=== PATIENT | female | born 1965 | race Caucasian/White ===

== ENCOUNTER 2018-01-20 19:08 | Inpatient (IN) | payer SELFPAY ==
[~2018-01-20] VITALS: Ht 160 cm; Wt 81.6 kg
[~2018-01-20 19:08] MED LIST: LISINOPRIL HCTZ1 TAB PO
--- NOTE | 2018-01-20 19:47 | ED DYSPNEA/ASTHMA COMPLAINT ---
History of Present Illness General Chief Complaint: General Adult Stated Complaint: COUGHING UP BLOOD Source: patient Exam Limitations: no limitations Vital Signs & Intake/Output Vital Signs & Intake/Output Vital Signs Date Time Temp Pulse Resp B/P B/P Pulse O2 O2 Flow FiO2 Mean Ox Delivery Rate 01/20 2237 99.0 93 18 176/86 92 Nasal 2.0L Cannula 01/20 2101 79 186/102 01/20 2046 96 Nasal 2.0L Cannula 01/20 2001 Room Air 01/20 1947 99.4 79 18 186/102 91 Room Air Allergies Coded Allergies: No Known Allergies (01/20/18) Reconcile Medications LISINOPRIL/HYDROCHLOROTHIAZIDE (Lisinopril-Hctz 20-25 MG Tab) 1 TAB TAB 1 TAB PO DAILY HTN Triage Nurses Notes Reviewed? yes Onset: Abrupt Duration: constant Timing: recent history Severity: severe HPI: Patient is a 52-year-old female with past medical history of hypertension and hyperlipidemia who is noncompliant with her medications for presents emergent with a 24-hour history of shortness of breath dyspnea on exertion cough denies weakness and fatigue and due to multiple coughing episodes hemoptysis has occurred. Denies any chest pain arm pain jaw pain nausea vomiting flex swelling or history of DVT or PE (Toño Johnston) Past History Medical History Any Pertinent Medical History? see below for history Cardiovascular: hypertension, hyperlipidemia History of CDIFF: No Surgical History Surgical History: non-contributory Psychosocial History What is your primary language Cypriot Family History Hx Contributory? No (Toño Johnston) Review of Systems Review of Systems Constitutional: Reports: see HPI, fever. EENTM: Reports: no symptoms. Respiratory: Reports: see HPI, cough, short of breath. Cardiovascular: Reports: no symptoms. GI: Reports: no symptoms. Genitourinary: Reports: no symptoms. Musculoskeletal: Reports: no symptoms. Skin: Reports: no symptoms. Neurological/Psychological: Reports: no symptoms. Hematologic/Endocrine: Reports: no symptoms. Immunologic/Allergic: Reports: no symptoms. All Other Systems: Reviewed and Negative (Toño Johnston) Physical Exam Physical Exam General Appearance: alert, lethargic Head: atraumatic Eyes: Bilateral: normal appearance, PERRL, EOMI. Ears, Nose, Throat: normal pharynx, normal ENT inspection Respiratory: crackles, wheezing Cardiovascular: tachycardia Gastrointestinal: normal bowel sounds, soft, non-tender Extremities: normal inspection, no edema Skin: intact, normal color, warm/dry Core Measures ACS in differential dx? No CVA/TIA Diagnosis No Sepsis Present: No Sepsis Focused Exam Completed? No (Jaycee WARREN,Toño) Progress Differential Diagnosis: asthma, AMI, bronchitis, costochondritis, CHF, COPD, musculoskeletal pain, pericarditis, pulmonary embolism, pneumonia, pneumothorax, rib fracture, unstable angina Plan of Care: Orders Procedure Date/time Status Heart Healthy Diet 01/21 B Active CBC WITHOUT DIFFERENTIAL 01/21 06 Active BASIC ELECTROLYTES PLUS BUN&CR 01/21 06 Active TROPONIN LEVEL 01/21 0200 Active EKG 01/21 0200 Active Weight 01/20 2336 Active Vital Signs 01/20 2336 Active Teach/Educate 01/20 2336 Active Pain Treatment and Response 01/20 2336 Active Nutritional Intake, Monitor 01/20 2336 Active Isolation 01/20 2336 Active Intake & Output 01/20 2336 Active Patient Care Conference 01/20 2336 Active Activity/Ambulation 01/20 2336 Active PROTHROMBIN TIME 01/20 2315 Complete TRC EVALUATION (GEN) 01/20 2232 Active Pathway - chart 01/20 2232 Active ED Holding Orders 01/20 2219 Active Admit to inpatient 01/20 2219 Active Vital Signs 01/20 2219 Active Code Status 01/20 2219 Active ED- NURSING MISC 01/20 2216 Active STREP PNEUMO URINARY ANTIGEN 01/20 221 Complete LEGIONELLA URINARY ANTIGEN 01/20 221 Complete LOWER RESPIRATORY CULTURE 01/20 221 Active Patient Data 01/20 2206 Active BLOOD CULTURE 01/20 2022 Active TROPONIN LEVEL 01/21 2020 Complete LACTIC ACID 01/21 2020 Complete COMPREHENSIVE METABOLIC PANEL 01/21 2020 Complete CBC WITHOUT DIFFERENTIAL 01/21 2020 Complete EKG 01/21 2020 Active Intake & Output 01/20 2001 Active VTE Mechanical Prophylaxis 01/20 UNK Active Current Medications Sig/Maynor Start time Last Medication Dose Stop Time Status Admin Enoxaparin Sodium 40 MG DAILY 01/21 0900 AC (Lovenox) Acetaminophen 650 MG Q8P PRN 01/20 2300 AC (Tylenol) Laboratory Tests 01/20/18 2320: Lactic Acid Cancelled 01/20/18 2020: Anion Gap 10, Estimated GFR > 60, BUN/Creatinine Ratio 16.7, Glucose 121 H, Lactic Acid 1.2, Calcium 9.2, Total Bilirubin 0.4, AST 27, ALT 42, Alkaline Phosphatase 131 H, Troponin I < 0.01, Total Protein 7.7, Albumin 4.1, Globulin 3.6, Albumin/Globulin Ratio 1.1, PT 10.6, INR 0.97, CBC w Diff NO MAN DIFF REQ, RBC 4.59, MCV 90.9, MCH 30.4, MCHC 33.5, RDW 13.5, MPV 7.5, Gran % 73.2, Lymphocytes % 15.4 L, Monocytes % 6.6, Eosinophils % 4.5, Basophils % 0.3, Absolute Granulocytes 9.3 H, Absolute Lymphocytes 1.9, Absolute Monocytes 0.8 H, Absolute Eosinophils 0.6, Absolute Basophils 0 Microbiology 01/20 2239 URINE ROUT: Legionella Antigen - COMP 01/20 2239 URINE ROUT: Streptococcus pneumoniae Antigen (M - COMP 01/21 2216 LOWER RESP: Respiratory Culture - ORD 01/21 2216 LOWER RESP: Gram Stain - ORD 01/20 2100 BLOOD: Blood Culture - RECD 01/20 2050 BLOOD: Blood Culture - RECD Patient upon initial presentation was noted to be 91% room air patient was given supplemental oxygen Patient does have audible crackles and wheezing Patient was given nebulizer and IV steroids and antibiotics for concerns of pneumonia CT scan shows concerns of pneumonia and consolidation discussed admission with patient was aware and agrees Diagnostic Imaging: Viewed by Me: CT Scan. Radiology Impression: acute abnormality Initial ED EK BPM,NSR NONSPECIFIC ST WAVE INVERSION Comments: PATIENT: LESLIE HERNÁNDEZ PRESENT AGE: 52 PATIENT ACCOUNT NO: [id number] : 63 LOCATION: [facility] ORDERING PHYSICIAN: Toño WARREN SERVICE DATE: 01/20/18 EXAM TYPE: CAT - CTA CHEST-PULMONARY EMBOLISM EXAMINATION: CT ANGIOGRAM OF THE CHEST WITH CONTRAST (CT PULMONARY ANGIOGRAM FOR PE) CLINICAL INFORMATION: Shortness of breath and hemoptysis. COMPARISON: Chest CT from 05/26/2010 TECHNIQUE: Prior to contrast administration, noncontrast localization images were obtained. Subsequently, multidetector volumetric imaging was performed from the thoracic inlet to below the diaphragms following the administration of 95 mL Optiray 320 intravenous contrast. No contrast reaction reported. Sagittal, coronal, and MIP oblique sagittal reformatted images were obtained on the CT workstation, uploaded to PACS, and reviewed. DLP: Total exam dose-length product 512 mGy-cm FINDINGS: QUALITY OF STUDY/CONTRAST BOLUS: Borderline in satisfactory PULMONARY ARTERIES: Pulmonary arteries are normal in size. No embolic filling defects are identified within the main, lobar or segmental vessels. THORACIC AORTA: Mild atherosclerotic calcification of the thoracic aorta without aneurysm or dissection. LUNGS AND PLEURA: Lungs are hypoinflated and right diaphragm chronically elevated. The elevated right diaphragm produces mild compressive atelectasis in the right lung base. Mild patchy groundglass opacity is present in the left lung apex. Also, patchy ground glass opacity is present in the lower third of the left upper lobe. Secretions occlude the left lower lobe bronchi and the left lower lobe is collapsed. No evidence of a peribronchial mass. CARDIOVASCULAR: The heart size is normal. No inward bowing of the interventricular septum. No pericardial effusion. MEDIASTINUM: The esophagus has normal wall thickness. The visualized portion of the thyroid gland is unremarkable. No mediastinal mass. LYMPHATICS: No pathologic sized axillary, hilar or mediastinal lymph nodes. UPPER ABDOMEN: No acute findings. No reflux of contrast into the IVC. Multiple calyceal stones of the partially visualized right kidney, largest measuring 0.4 cm. Small, 0.3 cm calyceal stone is present within the upper pole of the left kidney. Gallbladder appears to be surgically absent. Common bile duct is 0.7 cm diameter. OSSEOUS STRUCTURES: Levoscoliosis of the degenerated lower thoracic and lumbar spine. No aggressive osseous lesions. IMPRESSION: 1. No evidence of pulmonary embolism. 2. Patchy groundglass opacity in the left upper lobe, consistent with pneumonia. 3. Secretions occlude the bronchi of the left lower lobe, and the left lower lobe is completely collapsed. 4. Nonobstructing renal stones. DICTATED BY: Mg Presley MD DATE/TIME DICTATED:01/20/18 (Toño Johnston) Departure Departure Disposition: STILL A PATIENT Condition: Stable Referrals: Nalini Oneal MD Departure Forms: Customer Survey General Discharge Information Admission Note Spoke With: Joyce Perez MD Documentation of Exam: Documentation of any treatments & extenuating circumstances including Concerns Regarding Discharge (functional status, medication knowledge or non-compliance, living conditions, etc.) that warrant an admission rather than observation: [ Patient requires IV steroids IV antibiotics repeat nebulizer treatments Pulmicort consultation sputum and blood cultures pending and oxygen supplementation for concerns of community acquired pneumonia] (Toño Johnston) Departure Clinical Impression Primary Impression: Pneumonia Comments PA/GIFT SHOP CLERK Co-Sign Statement Statement: ED Attending supervision documentation- [X] I saw and evaluated the patient. I have also reviewed all the pertinent lab results and diagnostic results. I agree with the findings and the plan of care as documented in the PA's/GIFT SHOP CLERK's documentation. [] I have reviewed the ED Record and agree with the PA's/GIFT SHOP CLERK's documentation. [] Additions or exceptions (if any) to the PAs/GIFT SHOP CLERK's note and plan are summarized below: [] I've seen and personally examined the patient and I agree with the PAs evaluation. On my exam she is comfortable. Lungs reveal poor air entry bilaterally. (Marcell BEGUM,Lebron Espinoza) Critical Care Note Critical Care Note Critical Care Time: non-applicable (Toño Johnston)
[2018-01-20 20:34] LABS: ABSOLUTE BASOPHIL COUNT 0 /CUMM (0.0-0.2); ABSOLUTE EOSINOPHIL COUNT 0.6 /CUMM (0.0-0.7); ABSOLUTE GRANULOCYTE CT 9.3 /CUMM (1.4-6.5); ABSOLUTE LYMPH COUNT 1.9 /CUMM (1.2-3.4); ABSOLUTE MONOCYTE COUNT 0.8 /CUMM (0.10-0.60); BASOPHIL % 0.3 % (0.0-2.0); EOSINOPHIL % 4.5 % (0-5); HEMATOCRIT 41.7 % (37-47); MEAN CORPUSCULAR HGB 30.4 PG (27.0-31.0); MEAN CORPUSCULAR HGB CONC 33.5 G/DL (33.0-37.0); MEAN CORPUSCULAR VOLUME 90.9 FL (81.0-99.0); MEAN PLATELET VOLUME 7.5 FL (7.4-10.4); PLATELET COUNT 288 /CUMM (130-400); RBC DISTRIBUTION WIDTH 13.5 % (11.5-14.5); RED BLOOD CELL CT 4.59 /CUMM (4.20-5.40); WHITE BLOOD CELL COUNT 12.6 /CUMM (4.8-10.8)
[2018-01-20 20:45] LABS: GRANULOCYTE % 73.2 % (42.2-75.2)
--- NOTE | 2018-01-20 21:47 | CT SCAN REPORT ---
EXAMINATION: CT ANGIOGRAM OF THE CHEST WITH CONTRAST (CT PULMONARY ANGIOGRAM FOR PE) CLINICAL INFORMATION: Shortness of breath and hemoptysis. COMPARISON: Chest CT from 05/26/2010 TECHNIQUE: Prior to contrast administration, noncontrast localization images were obtained. Subsequently, multidetector volumetric imaging was performed from the thoracic inlet to below the diaphragms following the administration of 95 mL Optiray 320 intravenous contrast. No contrast reaction reported. Sagittal, coronal, and MIP oblique sagittal reformatted images were obtained on the CT workstation, uploaded to PACS, and reviewed. DLP: Total exam dose-length product 512 mGy-cm FINDINGS: QUALITY OF STUDY/CONTRAST BOLUS: Borderline in satisfactory PULMONARY ARTERIES: Pulmonary arteries are normal in size. No embolic filling defects are identified within the main, lobar or segmental vessels. THORACIC AORTA: Mild atherosclerotic calcification of the thoracic aorta without aneurysm or dissection. LUNGS AND PLEURA: Lungs are hypoinflated and right diaphragm chronically elevated. The elevated right diaphragm produces mild compressive atelectasis in the right lung base. Mild patchy groundglass opacity is present in the left lung apex. Also, patchy ground glass opacity is present in the lower third of the left upper lobe. Secretions occlude the left lower lobe bronchi and the left lower lobe is collapsed. No evidence of a peribronchial mass. CARDIOVASCULAR: The heart size is normal. No inward bowing of the interventricular septum. No pericardial effusion. MEDIASTINUM: The esophagus has normal wall thickness. The visualized portion of the thyroid gland is unremarkable. No mediastinal mass. LYMPHATICS: No pathologic sized axillary, hilar or mediastinal lymph nodes. UPPER ABDOMEN: No acute findings. No reflux of contrast into the IVC. Multiple calyceal stones of the partially visualized right kidney, largest measuring 0.4 cm. Small, 0.3 cm calyceal stone is present within the upper pole of the left kidney. Gallbladder appears to be surgically absent. Common bile duct is 0.7 cm diameter. OSSEOUS STRUCTURES: Levoscoliosis of the degenerated lower thoracic and lumbar spine. No aggressive osseous lesions. IMPRESSION: 1. No evidence of pulmonary embolism. 2. Patchy groundglass opacity in the left upper lobe, consistent with pneumonia. 3. Secretions occlude the bronchi of the left lower lobe, and the left lower lobe is completely collapsed. 4. Nonobstructing renal stones.
--- NOTE | 2018-01-20 22:36 | History & Physical ---
Wai Rizzo MD 01/20/18 2236: General Information and HPI MD Statement: I have seen and personally examined LESLIE HERNÁNDEZ and documented this H&P. The patient is a 52 year old F who presented with a patient stated chief complaint of [hemoptysis]. Source of Information: patient Exam Limitations: no limitations History of Present Illness: Patient is a 52-year-old female with a PMH significant for hypertension, hyperlipidemia who presents complaining of fatigue, nasal congestion and worsening dyspnea on exertion over the last few days. On the day of admission patient began having hemoptysis initially reports it as being phlegm streaked with blood and then chito red blood mixed with sputum. Patient reports mild chest pain associated with cough and continued worsening dyspnea on exertion however no dyspnea at rest. She denies any sick contacts and denies any fevers, chills, nausea, vomiting, diarrhea, urinary symptoms, neurologic symptoms. Allergies/Medications Allergies: Coded Allergies: No Known Allergies (01/20/18) Home Med list LISINOPRIL/HYDROCHLOROTHIAZIDE (Lisinopril-Hctz 20-25 MG Tab) 1 TAB TAB 1 TAB PO DAILY HTN Past History Travel History Traveled to [place] past 21 day No Medical History Neurological: NONE EENT: NONE Cardiovascular: hypertension Respiratory: NONE Gastrointestinal: NONE Hepatic: NONE Renal: NONE Musculoskeletal: NONE Psychiatric: NONE Endocrine: NONE History of CDIFF: No Surgical History Surgical History: cholecystectomy Past Family/Social History Family History Relations & Conditions if any MOTHER FH: stroke, Onset: 50-60. Psychosocial History Where do you live? Home Who Do You Live With? spouse Services at Home: None Primary Language: Faroese Smoking Status: Never Smoked ETOH Use: denies use Illicit Drug Use: denies illicit drug use Functional Ability ADLs Independent: dressing, eating, toileting, bathing. Ambulation: independent IADLs Independent: shopping, housework, finances, food prep, telephone, transportation , medication admin. Review of Systems Review of Systems Constitutional: Denies: chills, fever, malaise. EENTM: Reports: nasal congestion. Denies: blurred vision, double vision, visual changes. Cardiovascular: Denies: chest pain, palpitations, syncope. Respiratory: Reports: cough, hemoptysis, short of breath, sputum production. GI: Denies: abdominal pain, bloating, constipation, diarrhea, nausea, bloody stool, vomiting. Genitourinary: Denies: dysuria, frequency, hematuria. Musculoskeletal: Reports: no symptoms. Skin: Reports: no symptoms. Exam & Diagnostic Data Last 24 Hrs of Vital Signs/I&O Vital Signs Date Time Temp Pulse Resp B/P B/P Pulse O2 O2 Flow FiO2 Mean Ox Delivery Rate 01/20 2237 99.0 93 18 176/86 92 Nasal 2.0L Cannula 01/20 2101 79 186/102 01/20 2046 96 Nasal 2.0L Cannula 01/20 2001 Room Air 01/20 1947 99.4 79 18 186/102 91 Room Air Physical Exam General Appearance Alert, Oriented X3, Cooperative, No Acute Distress Skin Temp/Moisture Exam: Warm/Dry Sepsis Skin Exam (color): Normal for Ethnicity HEENT Atraumatic, PERRLA, EOMI, Mucous Membr. moist/pink Cardiovascular Regular Rate, Normal S1, Normal S2 Lungs scant rhonchi, diminished breath sound of the L lower lung field Abdomen Normal Bowel Sounds, Soft, No Tenderness Extremities No Clubbing, No Cyanosis, No Edema Last 24 Hrs of Labs/Nomi: Laboratory Tests 01/20/182319: Lactic Acid Cancelled 01/20/182019: Anion Gap 10, Estimated GFR > 60, BUN/Creatinine Ratio 16.7, Glucose 121 H, Lactic Acid 1.2, Calcium 9.2, Total Bilirubin 0.4, AST 27, ALT 42, Alkaline Phosphatase 131 H, Troponin I < 0.01, Total Protein 7.7, Albumin 4.1, Globulin 3.6, Albumin/Globulin Ratio 1.1, PT Pending, INR Pending, CBC w Diff NO MAN DIFF REQ, RBC 4.59, MCV 90.9, MCH 30.4, MCHC 33.5, RDW 13.5, MPV 7.5, Gran % 73.2, Lymphocytes % 15.4 L, Monocytes % 6.6, Eosinophils % 4.5, Basophils % 0.3, Absolute Granulocytes 9.3 H, Absolute Lymphocytes 1.9, Absolute Monocytes 0.8 H, Absolute Eosinophils 0.6, Absolute Basophils 0 Microbiology 01/20 2239 URINE ROUT: Legionella Antigen - COMP 01/20 2239 URINE ROUT: Streptococcus pneumoniae Antigen (M - COMP 01/21 2216 LOWER RESP: Respiratory Culture - ORD 06/20 2216 LOWER RESP: Gram Stain - ORD 01/20 2100 BLOOD: Blood Culture - RECD 01/20 2050 BLOOD: Blood Culture - RECD Diagnostic Data EKG Results Sinus rhythm with nonspecific T-wave changes, HR 82, QTc 449 Other Results CTA Chest QUALITY OF STUDY/CONTRAST BOLUS: Borderline in satisfactory PULMONARY ARTERIES: Pulmonary arteries are normal in size. No embolic filling defects are identified within the main, lobar or segmental vessels. THORACIC AORTA: Mild atherosclerotic calcification of the thoracic aorta without aneurysm or dissection. LUNGS AND PLEURA: Lungs are hypoinflated and right diaphragm chronically elevated. The elevated right diaphragm produces mild compressive atelectasis in the right lung base. Mild patchy groundglass opacity is present in the left lung apex. Also, patchy ground glass opacity is present in the lower third of the left upper lobe. Secretions occlude the left lower lobe bronchi and the left lower lobe is collapsed. No evidence of a peribronchial mass. CARDIOVASCULAR: The heart size is normal. No inward bowing of the interventricular septum. No pericardial effusion. MEDIASTINUM: The esophagus has normal wall thickness. The visualized portion of the thyroid gland is unremarkable. No mediastinal mass. LYMPHATICS: No pathologic sized axillary, hilar or mediastinal lymph nodes. UPPER ABDOMEN: No acute findings. No reflux of contrast into the IVC. Multiple calyceal stones of the partially visualized right kidney, largest measuring 0.4 cm. Small, 0.3 cm calyceal stone is present within the upper pole of the left kidney. Gallbladder appears to be surgically absent. Common bile duct is 0.7 cm diameter. OSSEOUS STRUCTURES: Levoscoliosis of the degenerated lower thoracic and lumbar spine. No aggressive osseous lesions. IMPRESSION: 1. No evidence of pulmonary embolism. 2. Patchy groundglass opacity in the left upper lobe, consistent with pneumonia. 3. Secretions occlude the bronchi of the left lower lobe, and the left lower lobe is completely collapsed. 4. Nonobstructing renal stones. Assessment/Plan Assessment: Patient is a 52-year-old female with a PMH significant for hypertension, hyperlipidemia who presents complaining of fatigue, nasal congestion and worsening dyspnea on exertion over the last few days. On the day of admission patient began having hemoptysis initially reports it as being phlegm streaked with blood and then chito red blood mixed with sputum. CTA ruled out PE, shows patchy groundglass opacity of the left upper lobe with secretions occluding the bronchi of the left lower lobe and left lower lobe collapse. Vital signs on presentation: T 99.4, P 79, RR 18, BP 186/102, pulse ox 91% on room air (improved to 96% on 2 L) Labs: WBC 12.6, H/H 13.9/41.7, platelets 288, sodium 139, potassium 3.8, chloride 99, CO2 30, BUN 10, creatinine 0.6, glucose 121, lactic acid 1.2, alk phos 131 Problem list #Community-acquired pneumonia with hemoptysis #Hypertension, patient admits to noncompliance with her antihypertensive medications and she does not currently have a PCP #HLD Plan -Admit to general medicine floor -IV ceftriaxone and azithromycin -Sputum culture, blood cultures -Lisinopril and hydrochlorothiazide for blood pressure control -Pulm consult in a.m., patient does not have a general engineering teacher -Chest PT Diet: Heart healthy DVT prophylaxis: Lovenox, Alps CODE STATUS: Full code As Ranked By This Provider Problem List: 1. Pneumonia 2. Hemoptysis Core Measures/Misc (04/19) Acute Coronary Syndrome ACS Diagnosis: No Congestive Heart Failure Congestive Heart Failure Diagnosis No Cerebrovascular Accident CVA/TIA Diagnosis: No VTE (View Protocol) VTE Risk Factors Age>40 No Mechanical VTE Prophylaxis d/t N/A MechProphylax Ordered No VTE Pharm Prophylaxis d/t NA PharmProphylax ordered Sepsis (View protocol) Sepsis Present: No If YES complete Sepsis Event Note If YES complete Sepsis Event Note Charity Harrington 01/21/18 0006: Core Measures/Misc (04/19) Sepsis (View protocol) If YES complete Sepsis Event Note If YES complete Sepsis Event Note Resident Review Statement Resident Statement: discussed with agronomy internship, agreed with agronomy internship Other Findings: Patient is a 52-year-old female with past medical history of hypertension, hyperlipidemia, who came with a chief complaint of difficulty breathing since 3- 4 days. Patient states that it started on Thursday, 01/17, and since then she's been having difficulty breathing on exertion and productive cough. Initially she said the sputum was clear however this morning, initially she saw specks of blood mixed with sputum and later had chito hemoptysis of bright red blood. Patient denies any fever or chills. She is a nonsmoker, never had pneumonia in her life, does not use any oxygen at home. Patient states that she has been noncompliant with her antihypertensive medication and did not even have it at home. Labs and vitals as above Assessment and plan Will admit the patient on general medicine floor. Her hemoptysis could be due to bronchitis versus a possible infectious process in her left upper and lower pneumonia shown as groundglass opacities. Will start her on IV ceftriaxone and azithromycin and monitor vitals every shift. We will repeat her labs CBC and BEP in a.m. Given her chest pain, and nonspecific T-wave changes in her inferior leads, will repeat EKG and troponins and follow-up. Patient takes a combination of lisinopril and hydrochlorothiazide at home for hypertension, will continue the same. DVT prophylaxis subcutaneous days Lovenox. Patient is full code. Joyce Perez MD 01/21/18 0024: Core Measures/Misc (04/19) Sepsis (View protocol) If YES complete Sepsis Event Note If YES complete Sepsis Event Note Attending MD Review Statement Attending Statement Attending MD Statement: examined this patient, discuss w/resident/PA/TRAFFIC ANALYST, agreed w/resident/PA/TRAFFIC ANALYST, reviewed EMR data (avail) Attending Assessment/Plan: 52F PMH HTN non-compliant with medications presents with 3 days of progressive worsening cough with yellow sputum, noted flecks of blood in her sputum today and came to ED. Has been weak with poor PO intake for the past 1-2 days. Non- smoker, no sick contacts or recent travel. 99.4 with mildly elevated BP 180/106 in ED, given home anti-hypertensives, WBC 12.6. CTA chest shows no PE but JEIMY pneumonia with LLL mucous plugging. Plan: Admit to general medicine, Ceftriaxone , Azithro, chest physiotherapy, nebulizer treatments, pulmonary consult, sputum culture, S.pneumo and Legionella antigens, continue home anti-hypertensives, DVT PPx.
[2018-01-20 23:33] LABS: PT 10.6 SEC (9.4-12.5)
--- NOTE | 2018-01-21 02:27 | Admission Certification ---
Admission Certification Certification Statement - As attending physician, I certify that at the time of - admission, based on clinical presentation, severity of - symptoms, need for further diagnostic testing and - therapeutic interventions, and risk of adverse outcomes - without in-hospital treatment, in my clinical assessment, - this patient requires an acute hospital stay for a minimum - of two nights or longer. I have also considered psychsocial - factors such as support system, advanced age, financial - issues, cognitive issues, and failed out-patient treatments, - past re-admission history, safety of patient, and lack of - compliance as applicable. Specific rationale supporting this admission is: JEIMY and LLL pneumonia with hypoxia
[2018-01-21 06:18] VITALS: BP 150/90
[2018-01-21 08:37] LABS: ABSOLUTE BASOPHIL COUNT 0 /CUMM (0.0-0.2); ABSOLUTE EOSINOPHIL COUNT 0 /CUMM (0.0-0.7); ABSOLUTE GRANULOCYTE CT 11.4 /CUMM (1.4-6.5); ABSOLUTE LYMPH COUNT 0.8 /CUMM (1.2-3.4); ABSOLUTE MONOCYTE COUNT 0.1 /CUMM (0.10-0.60); BASOPHIL % 0 % (0.0-2.0); EOSINOPHIL % 0 % (0-5); HEMATOCRIT 43.8 % (37-47); MEAN CORPUSCULAR HGB 29.8 PG (27.0-31.0); MEAN CORPUSCULAR HGB CONC 33.1 G/DL (33.0-37.0); MEAN CORPUSCULAR VOLUME 90.1 FL (81.0-99.0); MEAN PLATELET VOLUME 7.9 FL (7.4-10.4); PLATELET COUNT 264 /CUMM (130-400); RED BLOOD CELL CT 4.86 /CUMM (4.20-5.40)
--- NOTE | 2018-01-21 08:55 | PN- Housestaff ---
Kelsy GHOTRA,Augustine 01/21/18 0855: Subjective Follow-up For: pneumonia HTN Subjective: no overnight events afebrile on antibiotics on 3L supplemental oxygen patient does complain of pleuritic chest pain with her cough, exertional dyspnea is improved with supplemental oxygen Review of Systems Constitutional: Reports: see HPI. Objective Last 24 Hrs of Vital Signs/I&O Vital Signs Date Time Temp Pulse Resp B/P B/P Pulse O2 O2 Flow FiO2 Mean Ox Delivery Rate 01/21 1050 93 Nasal 3.0L Cannula 01/21 1025 Nasal 3.0L Cannula 01/21 0903 86 139/87 01/21 0800 Nasal 3.0L Cannula 01/21 0618 98.2 84 20 150/90 93 Nasal 3.0L Cannula 01/21 0000 Nasal 3.0L Cannula 01/20 2330 Nasal 2.0L Cannula 01/20 2237 99.0 93 18 176/86 92 Nasal 2.0L Cannula 01/20 2101 79 186/102 01/20 2046 96 Nasal 2.0L Cannula 01/20 2001 Room Air 01/20 1947 99.4 79 18 186/102 91 Room Air Intake & Output 01/21 1600 01/21 0800 01/21 0000 Intake Total 200 Output Total Balance 200 Intake, Oral 200 Patient 81.647 kg 81.647 kg Weight Weight Reported by Patient Measurement Method Physical Exam General Appearance: Alert, Oriented X3, Cooperative, No Acute Distress, on 3-4L supplemental oxygen via nasal cannula Cardiovascular: Regular Rate, Normal S1, Normal S2, No Murmurs Lungs: diminished at the left base Abdomen: Normal Bowel Sounds, Soft, No Tenderness, No Masses Extremities: No Clubbing, No Cyanosis, No Edema, Normal Pulses Current Medications: Current Medications Sig/Maynor Start time Last Medication Dose Route Stop Time Status Admin Acetaminophen 650 MG Q8P PRN 01/20 2300 AC PO Acetaminophen 650 MG Q8P PRN 01/20 2245 DC PO Albuterol Sulfate 3 ML BID 01/21 2100 AC INH Albuterol Sulfate 3 ML ONCE ONE 01/20 2030 DC 01/20 INH 01/20 Azithromycin 500 MG DAILY 01/21 0900 AC 01/21 Sodium Chloride 250 ML IV 09 Azithromycin 500 MG ONCE ONE 01/20 2030 DC 01/20 Sodium Chloride 250 ML IV 06/20 2129 2130 Ceftriaxone Sodium 1,000 MG DAILY 01/21 09 AC 01/21 IV 0903 Ceftriaxone Sodium 0 .STK-MED ONE 01/20 2259 DC .ROUTE Ceftriaxone Sodium 1,000 MG ONCE ONE 01/20 2200 DC 01/20 IV 01/20 Enoxaparin Sodium 40 MG DAILY 01/21 900 DC SC Enoxaparin Sodium 40 MG DAILY 01/21 0900 AC 01/21 SC 0903 Guaifenesin 600 MG Q12 01/21 900 AC 01/21 PO 0901 Guaifenesin 600 MG ONCE ONE 01/20 2030 DC 01/20 PO 01/20 Hydrochlorothiazide 12.5 MG DAILY 01/21 09 AC 01/21 PO 0903 Hydrochlorothiazide 12.5 MG ONCE ONE 01/20 2030 DC 01/20 PO 01/20 Ibuprofen 600 MG Q8P PRN 01/21 0015 AC PO Ipratropium Casa 2.5 ML ONCE ONE 01/20 2030 DC 01/20 INH 01/20 Lisinopril 10 MG DAILY 01/21 900 AC 01/21 PO 0903 Lisinopril 0 .STK-MED ONE 01/20 2049 DC PO Lisinopril 10 MG ONCE ONE 01/20 2030 DC 01/20 PO 01/20 Melatonin 5 MG ONCE ONE 01/21 0030 DC 01/21 PO 01/21 003 0101 Methylprednisolone 0 .STK-MED ONE 01/21 2048 DC .ROUTE Methylprednisolone 125 MG ONCE ONE 01/20 2030 DC 01/20 IV 01/20 Last 24 Hrs of Lab/Nomi Results Last 24 Hrs of Labs/Mics: Laboratory Tests 01/21/18 0705: Anion Gap 15, Estimated GFR > 60, BUN/Creatinine Ratio 18.3, CBC w Diff NO MAN DIFF REQ, RBC 4.86, MCV 90.1, MCH 29.8, MCHC 33.1, RDW 13.0, MPV 7.9, Gran % 93.0 H, Lymphocytes % 6.2 L, Monocytes % 0.8 L, Eosinophils % 0, Basophils % 0, Absolute Granulocytes 11.4 H, Absolute Lymphocytes 0.8 L, Absolute Monocytes 0.1, Absolute Eosinophils 0, Absolute Basophils 0 01/21/185: Troponin I < 0.01 01/20/182319: Lactic Acid Cancelled 01/20/182019: Anion Gap 10, Estimated GFR > 60, BUN/Creatinine Ratio 16.7, Glucose 121 H, Lactic Acid 1.2, Calcium 9.2, Total Bilirubin 0.4, AST 27, ALT 42, Alkaline Phosphatase 131 H, Troponin I < 0.01, Total Protein 7.7, Albumin 4.1, Globulin 3.6, Albumin/Globulin Ratio 1.1, PT 10.6, INR 0.97, CBC w Diff NO MAN DIFF REQ, RBC 4.59, MCV 90.9, MCH 30.4, MCHC 33.5, RDW 13.5, MPV 7.5, Gran % 73.2, Lymphocytes % 15.4 L, Monocytes % 6.6, Eosinophils % 4.5, Basophils % 0.3, Absolute Granulocytes 9.3 H, Absolute Lymphocytes 1.9, Absolute Monocytes 0.8 H, Absolute Eosinophils 0.6, Absolute Basophils 0 Microbiology 01/21 1200 LOWER RESP: Respiratory Culture - ORD 01/21 1200 LOWER RESP: Gram Stain - ORD 01/20 223 URINE ROUT: Legionella Antigen - COMP 01/20 223 URINE ROUT: Streptococcus pneumoniae Antigen (M - COMP 01/20 2216 LOWER RESP: Respiratory Culture - COLB 01/20 2216 LOWER RESP: Gram Stain - COLB 01/20 2100 BLOOD: Blood Culture - RES 01/20 2050 BLOOD: Blood Culture - RES Assessment/Plan Assessment: 52 year old nonsmoking female with PMH of HTN and HLD off of medications because of no insurance presented with complaints of increasing exertional dyspnea and cough for several days that progressed from blood tinged sputum to small volume hemoptysis and evaluation. The patient was hypoxic on presentation and CTA of the chest showed patchy JEIMY infiltrate and collapse of the LLL, admitted to general medicine for pneumonia. Pneumonia with hemopytsis: Titrate supplemental oxygen to maintain an SpO2 > 92% Continue ceftriaxone and azithromycin Induce sputum culture, strep pneumo/legionella urinary antigens Afebrile from admission, reports chills confounds by perimenopausal hot flashes Follow up cultures TRC evaluation Continue mucinex and nebulized albuterol LLL collapse: Aggressive chest physiotherapy Induce sputum culture Incentive spirometry Probably endobronchial obstruction from mucous secretions and pneumonia Bronchoscopy could relieve obstruction and assess for an endobronchial mass/ biopsy NPO after midnight for possible bronchoscopy Sputum cytology HTN: Continue lisinopril and HCTZ Heart healthy diet DVT ppx-lovenox Full code Problem List: 1. Hemoptysis 2. Pneumonia Pain Ratin Pain Location: pleuritic chest pain Pain Goal: Pain 4 or less Pain Plan: prn Tomorrow's Labs & Rationales: fatemeh Molina MD,Thiago 01/21/18 1109: Attending MD Review Statement Attending Statement Attending MD Statement: examined this patient, discuss w/resident/PA/BOILER WATER TESTER, agreed w/resident/PA/BOILER WATER TESTER, reviewed EMR data (avail), discussed with nursing, discussed with case mgmt, amended to note Attending Assessment/Plan: Patient seen and examined. Lying in bed not in any acute respiratory distress. She states she does not feel significantly better compared to presentation. She complains of cough. Denies chest pain. Denies shortness of breath at rest. She is afebrile. She is hemodynamically stable. She is saturating 93% on 3 L of oxygen. On examination she has diminished breath sounds in left lung base with no significant added sounds. No jugular venous distention. No peripheral edema. Heart sounds are regular. Recommendations: -Continue IV antibiotic therapy for presumed pneumonia. -Pulmonary consultation appreciated. I agree with anticipating fiberoptic bronchoscopy if she does not have improvement of her left lung collapse with mucolytic therapy with nucleus and chest physical therapy. This should be evidenced by improvement of her oxygenation status. -After resolution of her pneumonia clinically she will require repeat chest CT to rule out any underlying pulmonary lesion. -Blood pressure was elevated on admission. Patient reports noncompliance due to lack of medical insurance. She has been started on lisinopril. -She will be followed up by the financial service department to assist in obtaining insurance coverage.
[2018-01-21 09:56] LABS: WHITE BLOOD CELL COUNT 12.3 /CUMM (4.8-10.8)
--- NOTE | 2018-01-21 10:56 | Cons- Pulmonary ---
General Information and HPI Consulting Request Date of Consult: 01/21/18 Requested By: Elisa Reason for Consult: Left lower lobe collapse History of Present Illness: Patient is 52-year-old nonsmoker admitted with increasing cough and hemoptysis. Several days ago patient developed congestion without fevers or chills or chest pain and had cough productive of discolored sputum and small amounts of blood and had cough productive of discolored sputum and small amounts of blood. CT scan of the chest shows evidence of left lower lobe infiltrate and CT scan of the chest shows evidence of left lower lobe infiltrate and left lower lobe collapse with endobronchial obstruction thought to be secondary to secretions . Allergies/Medications Allergies: Coded Allergies: No Known Allergies (01/20/18) Home Med List: LISINOPRIL/HYDROCHLOROTHIAZIDE (Lisinopril-Hctz 20-25 MG Tab) 1 TAB TAB 1 TAB PO DAILY HTN Review of Systems Review of Systems Constitutional: Denies: chills, fever. Cardiovascular: Denies: chest pain, edema. Respiratory: Reports: cough, hemoptysis, short of breath, sputum production. Denies: wheezing. GI: Denies: abdominal pain, diarrhea, melena. Past History Travel History Traveled to [place] past 21 day No Medical History Blood Transfusion Hx: No Neurological: NONE EENT: NONE Cardiovascular: hypertension, hyperlipidemia Respiratory: NONE Gastrointestinal: NONE Hepatic: NONE Renal: NONE Musculoskeletal: NONE Psychiatric: NONE Endocrine: NONE Blood Disorders: NONE Cancer(s): NONE CARDIOTHORACIC SURGEON/Reproductive: NONE Surgical History Surgical History: cholecystectomy Family History Relations & Conditions If Any: MOTHER FH: stroke, Onset: 50-60. Psychosocial History Where Do You Live? Home Who Do You Live With? spouse Services at Home: None Primary Language: Italian Smoking Status: Never Smoked ETOH Use: denies use Illicit Drug Use: denies illicit drug use Functional Ability ADLs Independent: dressing, eating, toileting, bathing. Ambulation: independent IADLs Independent: shopping, housework, finances, food prep, telephone, transportation , medication admin. Exam & Diagnostic Data Last 24 Hrs of Vital Signs/I&O Vital Signs Date Time Temp Pulse Resp B/P B/P Pulse O2 O2 Flow FiO2 Mean Ox Delivery Rate 01/21 0903 86 139/87 01/21 0800 Nasal 3.0L Cannula 01/21 0618 98.2 84 20 150/90 93 Nasal 3.0L Cannula 01/21 0000 Nasal 3.0L Cannula 01/20 2330 Nasal 2.0L Cannula 01/20 2237 99.0 93 18 176/86 92 Nasal 2.0L Cannula 01/20 2101 79 186/102 01/206 96 Nasal 2.0L Cannula 01/20 2001 Room Air 01/20 1947 99.4 79 18 186/102 91 Room Air Intake & Output 01/21 1600 01/21 0800 01/21 0000 Intake Total 200 Output Total Balance 200 Intake, Oral 200 Patient 180 lb 180 lb Weight Weight Reported by Patient Measurement Method Oxygen saturation 3 L 93% HEENT exam shows no adenopathy exam for chest shows somewhat diminished breath sounds over the left posterior chest there is no localized wheezing right lung is clear cardiac exam shows a regular S1 and S2 without murmurs abdomen is soft nontender there's no edema or clubbing Last 48 Hrs of Labs/Nomi: Laboratory Tests 01/21/18 0705: Anion Gap 15, Estimated GFR > 60, BUN/Creatinine Ratio 18.3, CBC w Diff NO MAN DIFF REQ, RBC 4.86, MCV 90.1, MCH 29.8, MCHC 33.1, RDW 13.0, MPV 7.9, Gran % 93.0 H, Lymphocytes % 6.2 L, Monocytes % 0.8 L, Eosinophils % 0, Basophils % 0, Absolute Granulocytes 11.4 H, Absolute Lymphocytes 0.8 L, Absolute Monocytes 0.1, Absolute Eosinophils 0, Absolute Basophils 0 01/21/18 0225: Troponin I < 0.01 01/20/18 2320: Lactic Acid Cancelled 01/20/18 2020: Anion Gap 10, Estimated GFR > 60, BUN/Creatinine Ratio 16.7, Glucose 121 H, Lactic Acid 1.2, Calcium 9.2, Total Bilirubin 0.4, AST 27, ALT 42, Alkaline Phosphatase 131 H, Troponin I < 0.01, Total Protein 7.7, Albumin 4.1, Globulin 3.6, Albumin/Globulin Ratio 1.1, PT 10.6, INR 0.97, CBC w Diff NO MAN DIFF REQ, RBC 4.59, MCV 90.9, MCH 30.4, MCHC 33.5, RDW 13.5, MPV 7.5, Gran % 73.2, Lymphocytes % 15.4 L, Monocytes % 6.6, Eosinophils % 4.5, Basophils % 0.3, Absolute Granulocytes 9.3 H, Absolute Lymphocytes 1.9, Absolute Monocytes 0.8 H, Absolute Eosinophils 0.6, Absolute Basophils 0 Microbiology 01/20 2239 URINE ROUT: Legionella Antigen - COMP 01/20 2239 URINE ROUT: Streptococcus pneumoniae Antigen (M - COMP Assessment/Plan Impression/Plan: 52-year-old non-smoker with extensive exposure to secondhand smoke admitted with cough productive of purulent sputum admitted with cough productive of purulent sputum and self-limited hemoptysis found to have left lower lobe collapse left lower lobe infiltrate . Concern is raised over a primary left lower lobe endobronchial lesion with secondary drowned lung versus new acquired pneumonia with retained secretions Recommendations: Sputum APARTMENT LEASING SPECIALIST and sputum for cytology aggressive pulmonary toilet Mucomyst nebs. If patient fails to improve fiberoptic bronchoscopy will be necessary . Patient should be n.p.o. after midnight in case bronchoscopy is needed She should be nothing by mouth after midnight in case bronchoscopy is needed shoud hemoptysis recur . Continue antibiotics in view of leukocytosis Consult Acknowledgment - Thank you for your consult request.
[2018-01-21 15:18] VITALS: BP 156/80
[2018-01-21 22:16] VITALS: BP 138/80
[2018-01-22 06:57] VITALS: BP 136/71
--- NOTE | 2018-01-22 07:07 | PN- Housestaff ---
See Addendum Subjective Follow-up For: pneumonia HTN Subjective: patient is feeling somewhat improved today no more hemoptysis, supplemental oxygen requirement improved today no plan for bronchoscopy at this time afebrile on antibiotics Review of Systems Constitutional: Reports: see HPI. Objective Last 24 Hrs of Vital Signs/I&O Vital Signs Date Time Temp Pulse Resp B/P B/P Pulse O2 O2 Flow FiO2 Mean Ox Delivery Rate 01/22 1011 18 90 Room Air 01/22 0915 94 Nasal 2.0L Cannula 01/22 0914 18 92 Nasal 1.0L Cannula 01/22 0840 16 94 Nasal 2.0L Cannula 01/22 0800 97 Nasal 2.0L Cannula 01/22 0657 98.6 69 20 136/71 95 Nasal 3.0L Cannula 01/22 0000 Nasal 3.0L Cannula 01/21 2216 98.2 95 18 138/80 92 Nasal 3.0L Cannula 01/21 2020 95 Nasal 3.0L Cannula 01/21 1600 92 Nasal 3.0L Cannula 01/21 1518 98.4 93 20 156/80 92 Nasal 3.0L Cannula Intake & Output 01/22 1600 01/22 0800 01/22 0000 Intake Total 70 1090 Output Total Balance 70 1090 Intake, IV 10 10 Intake, Oral 60 1080 Number 0 0 Bowel Movements Physical Exam General Appearance: Alert, Oriented X3, Cooperative, No Acute Distress, on 1L NC oxygen Cardiovascular: Regular Rate, Normal S1, Normal S2, No Murmurs Lungs: improved air movement in left base Abdomen: Normal Bowel Sounds, Soft, No Tenderness, No Masses Extremities: No Clubbing, No Cyanosis, No Edema, Normal Pulses Current Medications: Current Medications Sig/Maynor Start time Last Medication Dose Route Stop Time Status Admin Acetaminophen 650 MG Q8P PRN 01/20 2300 AC PO Acetylcysteine 4 ML BID 01/21 1327 AC 01/22 INH 0833 Albuterol Sulfate 3 ML BID 01/21 2100 AC 01/22 INH 0833 Azithromycin 500 MG DAILY 01/21 09 AC 01/22 Sodium Chloride 250 ML IV 0830 Ceftriaxone Sodium 1,000 MG DAILY 01/21 0900 AC 01/22 IV 0830 Enoxaparin Sodium 40 MG DAILY 01/21 09 AC 01/22 SC 0830 Guaifenesin 600 MG Q12 01/21 09 AC 01/22 PO 0830 Hydrochlorothiazide 12.5 MG DAILY 01/21 0900 AC 01/22 PO 0831 Ibuprofen 600 MG Q8P PRN 01/21 0015 AC PO Lisinopril 10 MG DAILY 01/21 09 AC 01/22 PO 0831 Melatonin 5 MG AT BEDTIME 01/21 2100 AC 01/21 PO 2133 Last 24 Hrs of Lab/Nomi Results Last 24 Hrs of Labs/Mics: Laboratory Tests 01/22/18 0705: CBC w Diff NO MAN DIFF REQ, RBC 4.94, MCV 89.9, MCH 30.0, MCHC 33.3, RDW 13.4, MPV 7.6, Gran % 80.7 H, Lymphocytes % 12.7 L, Monocytes % 6.1, Eosinophils % 0.3, Basophils % 0.2, Absolute Granulocytes 13.7 H, Absolute Lymphocytes 2.2, Absolute Monocytes 1.0 H, Absolute Eosinophils 0.1, Absolute Basophils 0 Assessment/Plan Assessment: 52 year old nonsmoking female with PMH of HTN and HLD off of medications because of no insurance presented with complaints of increasing exertional dyspnea and cough for several days that progressed from blood tinged sputum to small volume hemoptysis and evaluation. The patient was hypoxic on presentation and CTA of the chest showed patchy JEIMY infiltrate and collapse of the LLL, admitted to general medicine for pneumonia. Pneumonia with hemopytsis: Titrate supplemental oxygen to maintain an SpO2 > 92% Continue ceftriaxone and azithromycin Follow up sputum culture Strep pneumo/legionella urinary antigens negative Afebrile on antibiotics, leukocytosis without bandemia increased today, trend CBC Follow up cultures TRC evaluation Continue mucinex and nebulized albuterol LLL collapse: Aggressive chest physiotherapy Incentive spirometry Probably endobronchial obstruction from mucous secretions and pneumonia Could be endobronchial mass, consider bronchoscopy, follow up sputum cytology Improved aeration left base and lower oxygen requirement today Obtain PA and lateral chest x-ray to reassess left lower lobe collapse HTN: Continue lisinopril and HCTZ Systolic blood pressure 130s-150s yesteray Heart healthy diet DVT ppx-lovenox Full code Problem List: 1. Pneumonia 2. Hemoptysis 3. Chest pain Pain Ratin Pain Location: n/a Pain Goal: Pain 4 or less Pain Plan: prn Tomorrow's Labs & Rationales: cbc
[2018-01-22 08:16] LABS: ABSOLUTE BASOPHIL COUNT 0 /CUMM (0.0-0.2); ABSOLUTE EOSINOPHIL COUNT 0.1 /CUMM (0.0-0.7); ABSOLUTE GRANULOCYTE CT 13.7 /CUMM (1.4-6.5); ABSOLUTE LYMPH COUNT 2.2 /CUMM (1.2-3.4); BASOPHIL % 0.2 % (0.0-2.0); EOSINOPHIL % 0.3 % (0-5); GRANULOCYTE % 80.7 % (42.2-75.2); HEMATOCRIT 44.4 % (37-47); MEAN CORPUSCULAR HGB CONC 33.3 G/DL (33.0-37.0); MEAN CORPUSCULAR VOLUME 89.9 FL (81.0-99.0); MEAN PLATELET VOLUME 7.6 FL (7.4-10.4); PLATELET COUNT 294 /CUMM (130-400); RBC DISTRIBUTION WIDTH 13.4 % (11.5-14.5); RED BLOOD CELL CT 4.94 /CUMM (4.20-5.40); WHITE BLOOD CELL COUNT 16.9 /CUMM (4.8-10.8)
--- NOTE | 2018-01-22 08:49 | PN- Pulmonary ---
Subjective HPI/Critical Care Issues: Patient has more of a productive cough though no sputum has been yet obtained for culture cytology. Review of her CAT scan with radiology suggests there may well be increased density around the left lower lobe bronchus raising more concern for possible endobronchial lesion. Objective Current Medications: Current Medications Sig/Maynor Start time Last Medication Dose Route Stop Time Status Admin Acetaminophen 650 MG Q8P PRN 01/20 2300 AC PO Acetylcysteine 4 ML BID 01/21 1327 AC 01/22 INH 0833 Albuterol Sulfate 3 ML BID 01/21 2100 AC 01/22 INH 0833 Azithromycin 500 MG DAILY 01/21 09 AC 01/22 Sodium Chloride 250 ML IV 0830 Ceftriaxone Sodium 1,000 MG DAILY 01/21 0900 AC 01/22 IV 0830 Enoxaparin Sodium 40 MG DAILY 01/21 0900 DC SC Enoxaparin Sodium 40 MG DAILY 01/21 09 AC 01/22 SC 0830 Guaifenesin 600 MG Q12 01/21 0900 AC 01/22 PO 0830 Hydrochlorothiazide 12.5 MG DAILY 01/21 09 AC 01/22 PO 0831 Ibuprofen 600 MG Q8P PRN 01/21 0015 AC PO Lisinopril 10 MG DAILY 01/21 0900 AC 01/22 PO 0831 Melatonin 5 MG AT BEDTIME 01/21 2100 AC 01/21 PO 2133 Vital Signs & I&O Last 24 Hrs of Vitals and I&O: Vital Signs Date Time Temp Pulse Resp B/P B/P Pulse O2 O2 Flow FiO2 Mean Ox Delivery Rate 01/22 0840 16 94 Nasal 2.0L Cannula 01/22 0657 98.6 69 20 136/71 95 Nasal 3.0L Cannula 01/22 0000 Nasal 3.0L Cannula 01/21 2216 98.2 95 18 138/80 92 Nasal 3.0L Cannula 01/21 2020 95 Nasal 3.0L Cannula 01/21 1600 92 Nasal 3.0L Cannula 01/21 1518 98.4 93 20 156/80 92 Nasal 3.0L Cannula 01/21 1050 93 Nasal 3.0L Cannula 01/21 1025 Nasal 3.0L Cannula 01/21 0903 86 139/87 Intake & Output 01/22 1600 01/22 0800 01/22 0000 Intake Total 70 1090 Output Total Balance 70 1090 Intake, IV 10 10 Intake, Oral 60 1080 Number 0 0 Bowel Movements Oxygen saturation 2 L 94% exam for chest continues to show diminished breath sounds over the left base though there does appear to be somewhat better aeration cardiac exam shows regular S1 and S2 without murmurs Impression/Plan Impression/Plan Impression/Plan: 52-year-old admitted with pneumonia and left lower lobe collapse differential remains inspissated secretions versus possible endobronchial mass. There has been no further hemoptysis Recommendations: Sputum ENGLISH TEACHER and sputum for cytology aggressive pulmonary toilet Mucomyst nebs. If patient fails to improve fiberoptic bronchoscopy will be necessary . Continue antibiotics in view of leukocytosis repeat chest x-ray today
--- NOTE | 2018-01-22 12:57 | RADIOLOGY REPORT ---
EXAMINATION: XR CHEST CLINICAL INFORMATION: Cough. Presumptive diagnosis of pneumonia/left lower lobe collapse. COMPARISON: CT of the chest dated 01/20/2018. Chest x-ray dated 08/12/2010. TECHNIQUE: 2 views of the chest were obtained on 3 images. FINDINGS: The cardiomediastinal silhouette is within normal limits in size. Chronic elevation of the right hemidiaphragm is seen with associated right basilar subsegmental atelectatic changes. There is persistent retrocardiac opacity in the left lung base, related to the complete collapse and consolidation of the left lower lobe. Patchy parenchymal opacities in the lateral left lung base remain, similar to prior CT scan. There is a convex left thoracolumbar scoliosis with multilevel degenerative changes in the spine and diffuse osteopenia. IMPRESSION: 1. Findings are unchanged from the CT scan with collapse of the left lower lobe and patchy opacities in the left lingula again seen. 2. Chronic elevation of right hemidiaphragm with associated right basilar subsegmental atelectasis.
[2018-01-22 15:26] VITALS: BP 110/60
[2018-01-22 22:11] VITALS: BP 132/84
[2018-01-23 06:10] VITALS: BP 124/88
[2018-01-23 08:33] LABS: ABSOLUTE BASOPHIL COUNT 0 /CUMM (0.0-0.2); ABSOLUTE EOSINOPHIL COUNT 0.1 /CUMM (0.0-0.7); ABSOLUTE GRANULOCYTE CT 8.3 /CUMM (1.4-6.5); ABSOLUTE LYMPH COUNT 2.4 /CUMM (1.2-3.4); ABSOLUTE MONOCYTE COUNT 0.6 /CUMM (0.10-0.60); BASOPHIL % 0.4 % (0.0-2.0); GRANULOCYTE % 72.3 % (42.2-75.2); HEMATOCRIT 45.6 % (37-47); MEAN CORPUSCULAR HGB 29.9 PG (27.0-31.0); MEAN CORPUSCULAR HGB CONC 33.2 G/DL (33.0-37.0); MEAN CORPUSCULAR VOLUME 89.9 FL (81.0-99.0); MEAN PLATELET VOLUME 7.4 FL (7.4-10.4); PLATELET COUNT 303 /CUMM (130-400); RBC DISTRIBUTION WIDTH 13.3 % (11.5-14.5); RED BLOOD CELL CT 5.07 /CUMM (4.20-5.40); WHITE BLOOD CELL COUNT 11.4 /CUMM (4.8-10.8)
[2018-01-23 09:53] VITALS: BP 142/86
--- NOTE | 2018-01-23 11:51 | PN- Housestaff ---
Stefanie GHOTRA,[facility] 01/23/18 1150: Subjective Follow-up For: Pneumonia Hemoptysis HTN Subjective: Patient reports improvement in her cough but is still bringing up yellow/green color phlegm. Denies any blood in the sputum. Also denies any fever/chills or difficulty breathing without supplemental oxygen. Review of Systems Constitutional: Reports: no symptoms. EENTM: Reports: no symptoms. Cardiovascular: Reports: no symptoms. Respiratory: Reports: cough, sputum production. Gastrointestinal: Reports: no symptoms. Genitourinary: Reports: no symptoms. Musculoskeletal: Reports: no symptoms. Skin: Reports: no symptoms. Neurological/Psychological: Reports: no symptoms. Hematologic/Endocrine: Reports: no symptoms. Immunologic/Allergic: Reports: no symptoms. Objective Last 24 Hrs of Vital Signs/I&O Vital Signs Date Time Temp Pulse Resp B/P B/P Pulse O2 O2 Flow FiO2 Mean Ox Delivery Rate 01/23 1348 97.8 117 20 132/96 91 Room Air 01/23 0953 98.6 88 20 142/86 91 Room Air 01/23 0915 91 Room Air 01/23 0610 98.6 83 20 124/88 93 01/23 0000 94 Room Air 01/22 2211 97.9 87 18 132/84 92 Room Air 01/22 2035 92 Room Air 01/22 1600 Room Air Intake & Output 01/23 1600 01/23 0800 01/23 0000 Intake Total 860 480 450 Output Total Balance 860 480 450 Intake, IV 300 Intake, Oral 560 480 450 Number 1 Bowel Movements Physical Exam General Appearance: Alert, Oriented X3, Cooperative, No Acute Distress Skin: No Rashes, No Breakdown Cardiovascular: Regular Rate, Normal S1, Normal S2 Lungs: Clear to Auscultation, Normal Air Movement Abdomen: Normal Bowel Sounds, Soft, No Tenderness Extremities: No Clubbing, No Cyanosis, No Edema Current Medications: Current Medications Sig/Maynor Start time Last Medication Dose Route Stop Time Status Admin Acetaminophen 650 MG Q8P PRN 01/20 2300 AC PO Acetylcysteine 4 ML BID 01/21 1327 AC 01/23 INH 0914 Albuterol Sulfate 3 ML BID 01/21 2100 AC 01/23 INH 0905 Azithromycin 500 MG DAILY 01/21 09 AC 01/23 Sodium Chloride 250 ML IV 0957 Ceftriaxone Sodium 1,000 MG DAILY 01/21 09 AC 01/23 IV 0957 Enoxaparin Sodium 40 MG DAILY 01/21 900 AC 01/23 SC 0957 Guaifenesin 600 MG Q12 01/21 900 AC 01/23 PO 0957 Hydrochlorothiazide 12.5 MG DAILY 01/21 900 AC 01/23 PO 0956 Ibuprofen 600 MG Q8P PRN 01/21 0015 AC PO Lisinopril 10 MG DAILY 01/21 900 AC 01/23 PO 0957 Melatonin 5 MG AT BEDTIME 01/21 2100 AC 01/22 PO 2158 Last 24 Hrs of Lab/Nomi Results Last 24 Hrs of Labs/Mics: Laboratory Tests 01/23/18 0747: CBC w Diff NO MAN DIFF REQ, RBC 5.07, MCV 89.9, MCH 29.9, MCHC 33.2, RDW 13.3, MPV 7.4, Gran % 72.3, Lymphocytes % 20.7, Monocytes % 5.6, Eosinophils % 1.0, Basophils % 0.4, Absolute Granulocytes 8.3 H, Absolute Lymphocytes 2.4, Absolute Monocytes 0.6, Absolute Eosinophils 0.1, Absolute Basophils 0 Assessment/Plan Assessment: 52 year old nonsmoking female with PMH of HTN and HLD off of medications because of no insurance presented with complaints of increasing exertional dyspnea and cough for several days that progressed from blood tinged sputum to small volume hemoptysis and evaluation. The patient was hypoxic on presentation and CTA of the chest showed patchy JEIMY infiltrate and collapse of the LLL, admitted to general medicine for pneumonia. Pneumonia with hemopytsis: Off Supplemental oxygen Continue ceftriaxone and azithromycin Sputum culture - Mixed matilde with Light growth of GNR Strep pneumo/legionella urinary antigens negative Afebrile on antibiotics, leukocytosis without bandemia improved today, repeat CBC in am Follow up blood cultures TRC evaluation Continue mucinex and nebulized albuterol LLL collapse: Aggressive chest physiotherapy Incentive spirometry Probably endobronchial obstruction from mucous secretions and pneumonia Could be endobronchial mass, consider bronchoscopy, follow up sputum cytology Improved aeration left base and off supplemental oxygen today Obtain PA and lateral chest x-ray tomorrow morning to reassess left lower lobe collapse HTN: Continue lisinopril and HCTZ Systolic blood pressure 110s-140s yesteray Heart healthy diet DVT ppx-lovenox Full code Problem List: 1. Pneumonia 2. Hemoptysis Pain Ratin Pain Location: None Pain Goal: Remain pain free Pain Plan: Pain pathway Tomorrow's Labs & Rationales: CBC(Pneumonia) Thiago Molina MD 01/23/18 1200: Attending MD Review Statement Attending Statement Attending MD Statement: examined this patient, discuss w/resident/PA/PHOTOCOPYING MACHINE OPERATOR, agreed w/resident/PA/PHOTOCOPYING MACHINE OPERATOR, reviewed EMR data (avail), discussed with nursing, discussed with case mgmt, amended to note Attending Assessment/Plan: Patient seen and examined. Resting comfortably not in any acute distress. No issues overnight reported by nursing staff. She is afebrile. She is hemodynamically stable. She is no longer requiring oxygen supplementation. On examination she has adequate entry bilaterally with no added sounds. Continue antibiotic therapy intravenously. Repeat chest x-ray PA lateral in a.m. If clinically stable she may be discharged tomorrow with outpatient follow-up with the pulmonology service. Patient states that she has no insurance and did not qualify for Medicaid. She will however need to have this addressed in order to ensure adequate outpatient follow-up. Fllow up with the case management service.
--- NOTE | 2018-01-23 12:07 | PN- Pulmonary ---
Subjective HPI/Critical Care Issues: pt seen and examined on room air feeling much better greenish phlegm is expectorated, no hemoptysis Objective Current Medications: Current Medications Sig/Maynor Start time Last Medication Dose Route Stop Time Status Admin Acetaminophen 650 MG Q8P PRN 01/20 2300 AC PO Acetylcysteine 4 ML BID 01/21 1327 AC 01/23 INH 0914 Albuterol Sulfate 3 ML BID 01/21 2100 AC 01/23 INH 0905 Azithromycin 500 MG DAILY 01/21 09 AC 01/23 Sodium Chloride 250 ML IV 0957 Ceftriaxone Sodium 1,000 MG DAILY 01/21 0900 AC 01/23 IV 0957 Enoxaparin Sodium 40 MG DAILY 01/21 09 AC 01/23 SC 0957 Guaifenesin 600 MG Q12 01/21 09 AC 01/23 PO 0957 Hydrochlorothiazide 12.5 MG DAILY 01/21 09 AC 01/23 PO 0956 Ibuprofen 600 MG Q8P PRN 01/21 0015 AC PO Lisinopril 10 MG DAILY 01/21 09 AC 01/23 PO 0957 Melatonin 5 MG AT BEDTIME 01/21 2100 AC 01/22 PO 2158 Patient Medication 1 ED ONE ONE 01/22 1430 DC 01/23 Teaching ED 01/22 1431 0649 Vital Signs & I&O Last 24 Hrs of Vitals and I&O: Vital Signs Date Time Temp Pulse Resp B/P B/P Pulse O2 O2 Flow FiO2 Mean Ox Delivery Rate 01/23 0953 98.6 88 20 142/86 91 Room Air 01/23 0915 91 Room Air 01/23 0610 98.6 83 20 124/88 93 01/23 0000 94 Room Air 01/22 2211 97.9 87 18 132/84 92 Room Air 01/22 2035 92 Room Air 01/22 1600 Room Air 01/22 1526 98.4 99 20 110/60 91 Room Air 01/22 1433 20 92 Room Air Intake & Output 01/23 1600 01/23 0800 01/23 0000 Intake Total 480 450 Output Total Balance 480 450 Intake, Oral 480 450 Exam Other Physical Findings: gen-[id number] head/neck-room air cvs-s1,s2 lungs-rare rhonchi bibasilar abd-soft,bs+ ext-without edema Results Last 24 Hrs of Lab Results: Laboratory Tests 01/23/18 0747: CBC w Diff NO MAN DIFF REQ, RBC 5.07, MCV 89.9, MCH 29.9, MCHC 33.2, RDW 13.3, MPV 7.4, Gran % 72.3, Lymphocytes % 20.7, Monocytes % 5.6, Eosinophils % 1.0, Basophils % 0.4, Absolute Granulocytes 8.3 H, Absolute Lymphocytes 2.4, Absolute Monocytes 0.6, Absolute Eosinophils 0.1, Absolute Basophils 0 Impression/Plan Impression/Plan Impression/Plan: Impression 52 year old woman * community acquired pneumonia with LLL collapse - likely tenacious sputum, however an endobronchial lesion is a consideration Plan -on room air, feeling much better -obtain CXR - PA/Lateral 01/24 -if doing well should be discharged with outpatient imaging to ensure resolution vs. further workup of the LLL collapse and resolution of pna -chest PT, flutter device, incentive spirometry, continue mucomyst for now -cont abx -patient does not have insurance and input from social work may be necessary, she has not seen a healthcare provider in years and would need to establish care for follow up of acute illness and ongoing preventative/screening and primary care needs DVT prophylaxis at all times
[2018-01-23 13:48] VITALS: BP 132/96
[2018-01-23 21:36] VITALS: BP 126/90
[2018-01-24 07:14] VITALS: BP 124/88
--- NOTE | 2018-01-24 08:48 | PN- Housestaff ---
See Addendum Subjective Follow-up For: Pneumonia LLL collapse Subjective: patient is feeling better, afebrile overnight on antibiotics, currently saturating well on room air had some difficulty sleeping overnight no more hemoptysis Review of Systems Constitutional: Reports: see HPI. Objective Last 24 Hrs of Vital Signs/I&O Vital Signs Date Time Temp Pulse Resp B/P B/P Pulse O2 O2 Flow FiO2 Mean Ox Delivery Rate 01/24 0903 93 124/88 01/24 0714 98.3 93 18 124/88 95 01/24 0000 82 01/24 0000 Room Air 01/23 2136 98.4 113 18 126/90 90 01/23 Room Air 01/23 1600 Room Air 01/23 1348 97.8 117 20 132/96 91 Room Air Intake & Output 01/24 1600 01/24 0800 01/24 0000 Intake Total 120 610 Output Total Balance 120 610 Intake, IV 10 Intake, Oral 120 600 Number 0 Bowel Movements Physical Exam General Appearance: Alert, Oriented X3, Cooperative, No Acute Distress Cardiovascular: Regular Rate, Normal S1, Normal S2, No Murmurs Lungs: improved aeration left base Abdomen: Normal Bowel Sounds, Soft, No Tenderness, No Masses Extremities: No Clubbing, No Cyanosis, No Edema, Normal Pulses Current Medications: Current Medications Sig/Maynor Start time Last Medication Dose Route Stop Time Status Admin Acetaminophen 650 MG Q8P PRN 01/20 2300 AC PO Acetylcysteine 4 ML BID 01/21 1327 AC 01/23 INH 1930 Albuterol Sulfate 3 ML BID 01/21 2100 AC 01/23 INH 1930 Azithromycin 500 MG DAILY 01/21 900 AC 01/24 Sodium Chloride 250 ML IV 0903 Ceftriaxone Sodium 1,000 MG DAILY 01/21 900 AC 01/24 IV 0903 Diphenhydramine HCl 25 MG ONCE ONE 01/24 0045 DC 01/24 PO 01/24 0046 0100 Enoxaparin Sodium 40 MG DAILY 01/21 900 AC 01/24 SC 0903 Guaifenesin 600 MG Q12 01/21 900 AC 01/24 PO 09 Hydrochlorothiazide 12.5 MG DAILY 01/21 900 AC 01/24 PO 09 Ibuprofen 600 MG Q8P PRN 01/21 0015 AC PO Lisinopril 10 MG DAILY 01/21 900 AC 01/24 PO 09 Melatonin 5 MG AT BEDTIME 01/21 2100 AC 01/23 PO 2028 Ramelteon 8 MG ONCE ONE 01/24 0300 DC 01/24 PO 01/24 0301 0313 Assessment/Plan Assessment: 52 year old nonsmoking female with PMH of HTN and HLD off of medications because of no insurance presented with complaints of increasing exertional dyspnea and cough for several days that progressed from blood tinged sputum to small volume hemoptysis and evaluation. The patient was hypoxic on presentation and CTA of the chest showed patchy JEIMY infiltrate and collapse of the LLL, admitted to general medicine for pneumonia. Pneumonia with hemopytsis: Titrate supplemental oxygen to maintain an SpO2 > 92% Continue ceftriaxone and azithromycin Follow up sputum culture, GNR and mixed matilde Strep pneumo/legionella urinary antigens negative Afebrile on antibiotics, leukocytosis without bandemia increased today, trend CBC Follow up cultures TRC evaluation Continue mucinex and nebulized albuterol Follow up pulmonology recommendations LLL collapse: Aggressive chest physiotherapy Incentive spirometry TRC evaluation, mucomyst, nebulizer treatments Probably endobronchial obstruction from mucous secretions and pneumonia Endobronchial mass should be ruled out and re-evaluated with CT imaging Patient prefers to defer bronchoscopy if possible until she obtains health insurance Improved aeration left base, awaiting PA and lateral chest x-ray to reassess LLL collapse HTN: Continue lisinopril and HCTZ Heart healthy diet DVT ppx-lovenox Full code Problem List: 1. Chest pain 2. Pneumonia 3. Hemoptysis Pain Ratin Pain Location: n/a Pain Goal: Pain 4 or less Pain Plan: prn Tomorrow's Labs & Rationales: cbc
[2018-01-24 09:03] VITALS: BP 124/88
[2018-01-24] MEDS ORDERED: LISINOPRIL10 M1 PO ×2 (10:46→10:48)
[2018-01-24] MEDS ORDERED: HYDROCHLOROTH12.5 M3 PO ×2 (10:46→10:48)
[2018-01-24] MEDS ORDERED: AUGMENTIN 875-1 EACH PO ×2 (10:46→10:48)
--- NOTE | 2018-01-24 10:59 | Patient Discharge Instructions ---
Discharge Instructions General Discharge Information You were seen/treated for: Pneumonia LLL Collapse Special Instructions: You are being prescribed medications for hypertension. Finish your antibiotics as prescribed. Please follow up with pulmonology and primary care referrals when you obtain health insurance. You may need a CT scan and/or bronchoscopy in addition to PCP and preventative/screening/routine care. Acute Coronary Syndrome Inclusion Criteria At DC or during hospital stay patient has or had the following: ACS DIAGNOSIS No Discharge Core Measures Meds if any: Prescribed or Continued at Discharge Meds if any: NOT Prescribed or Continued at Discharge Congestive Heart Failure Inclusion Criteria At DC or during hospital stay patient has or had the following: CHF DIAGNOSIS No Discharge Core Measures Meds if any: Prescribed or Continued at Discharge Meds if any: NOT Prescribed or Continued at Discharge Cerebrovascular accident Inclusion Criteria At DC or during hospital stay patient has or had the following: CVA/TIA Diagnosis No Discharge Core Measures Meds if any: Prescribed or Continued at Discharge Meds if any: NOT Prescribed or Continued at Discharge Venous thromboembolism Inclusion Criteria VTE Diagnosis No VTE Type NONE VTE Confirmed by (Test) NONE Discharge Core Measures - Per Current guidelines, there needs to be overlap - treatment for the first 5 days of Warfarin therapy. - If discharged on Warfarin prior to 5 days of - overlap therapy, the patient will need to be - assessed for post discharge needs including - *Post discharge parental anticoagulation - *Warfarin and/or parental anticoagulation education - *Follow up date to check INR post discharge At least 5 days overlap therapy as Inpatient No Meds if any: Prescribed or Continued at Discharge Note: Overlap Therapy is Warfarin and Anticoagulant Meds if any: NOT Prescribed or Continued at Discharge
--- NOTE | 2018-01-24 11:28 | PN- Pulmonary ---
Subjective HPI/Critical Care Issues: pt seen and examined feels better awaiting cxr GNR in sputum Objective Current Medications: Current Medications Sig/Maynor Start time Last Medication Dose Route Stop Time Status Admin Acetaminophen 650 MG Q8P PRN 01/20 2300 AC PO Acetylcysteine 4 ML BID 01/21 1327 AC 01/24 INH 1056 Albuterol Sulfate 3 ML BID 01/21 2100 AC 01/24 INH 1055 Azithromycin 500 MG DAILY 01/21 09 AC 01/24 Sodium Chloride 250 ML IV 0903 Ceftriaxone Sodium 1,000 MG DAILY 01/21 09 AC 01/24 IV 0903 Diphenhydramine HCl 25 MG ONCE ONE 01/24 0045 DC 01/24 PO 01/24 0046 0100 Enoxaparin Sodium 40 MG DAILY 01/21 09 AC 01/24 SC 0903 Guaifenesin 600 MG Q12 01/21 0900 AC 01/24 PO 0903 Hydrochlorothiazide 12.5 MG DAILY 01/21 09 AC 01/24 PO 0903 Ibuprofen 600 MG Q8P PRN 01/21 0015 AC PO Lisinopril 10 MG DAILY 01/21 09 AC 01/24 PO 0903 Melatonin 5 MG AT BEDTIME 01/21 2100 AC 01/23 PO 2029 Ramelteon 8 MG ONCE ONE 01/24 0300 DC 01/24 PO 01/24 0301 0313 Vital Signs & I&O Last 24 Hrs of Vitals and I&O: Vital Signs Date Time Temp Pulse Resp B/P B/P Pulse O2 O2 Flow FiO2 Mean Ox Delivery Rate 01/24 0903 93 124/88 01/24 0714 98.3 93 18 124/88 95 01/24 0000 82 01/24 0000 Room Air 01/23 2136 98.4 113 18 126/90 90 01/23 2011 93 Room Air 01/23 1600 Room Air 01/23 1348 97.8 117 20 132/96 91 Room Air Intake & Output 01/24 1600 01/24 0800 01/24 0000 Intake Total 120 610 Output Total Balance 120 610 Intake, IV 10 Intake, Oral 120 600 Number 0 Bowel Movements Exam Other Physical Findings: gen-aaox3 head/neck-room air cvs-s1,s2 lungs-rare rhonchi bibasilar abd-soft,bs+ ext-without edema Impression/Plan Impression/Plan Impression/Plan: Impression 52 year old woman * community acquired pneumonia with LLL collapse - likely tenacious sputum, however an endobronchial lesion is a consideration Plan -on room air -await CXR -if doing well should be discharged with outpatient imaging to ensure resolution vs. further workup of the LLL collapse and resolution of pna -chest PT, flutter device, incentive spirometry, continue mucolytics -cont abx - f/u sputum culture - if to be discharged agree with levaquin -patient does not have insurance and input from social work may be necessary, she has not seen a healthcare provider in years and would need to establish care for follow up of acute illness and ongoing preventative/screening and primary care needs DVT prophylaxis at all times
--- NOTE | 2018-01-24 12:18 | RADIOLOGY REPORT ---
EXAMINATION: XR CHEST CLINICAL INFORMATION: Cough. Hemoptysis. COMPARISON: Previous chest x-ray 01/22/2018 and chest CTA 01/20/2018 TECHNIQUE: 2 views of the chest were obtained. FINDINGS: The cardiac and mediastinal contours are stable. There is elevation of the right hemidiaphragm that is unchanged. There is improved aeration of the left lower lobe compared to recent exams. The lungs are otherwise clear. There is no pleural effusion or pneumothorax. There is evidence of severe thoracolumbar scoliosis. IMPRESSION: Improved aeration of the left lower lobe compared to recent exams.
--- NOTE | 2018-01-25 11:26 | Discharge Summary ---
Visit Information Visit Dates Admission Date: 01/20/18 Discharge Date: 01/24/18 Hospital Course Course Attending Physician: Thiago Molina MD Primary Care Physician: Patient Has No Primary Care Dr Hospital Course: 52 year old nonsmoking female with past medical history of hypertension and hyperlipidemia not on any medications because of lack of health insurance and primary care presented to the hospital with complaints of increasing exertional dyspnea and cough for several days that progressively worsened and she developed blood tinged sputum and small volume hemoptysis. The patient was hypoxic, SpO2 87% on room air, on presentation and CTA of the chest showed a left upper lobe infiltrate and collapse of the left lower lobe. She had leukocytosis and a maximum temperature recorded of 99.4. She was placed on 4L of supplemental oxygen and admitted to general medicine for pneumonia. Pulmonology was consulted for the left lower lobe collapse. She was started on ceftriaxone and azithromycin for community acquired pneumonia. Strep pneumo and legionella urinary antigens were negative. Respiratory therapy, nebulized albuterol and mucomyst, and aggressive chest physiotherapy were performed. The CT imaging and lobar collapse raised suspiscion for endobronchial obstruction from either mucous plugging or possibly a mass. The patient will need to be re-evaluated with CT imaging +/- bronchoscopy in the future for this possibility. With antibiotics, chest PT, and expectoration, the patient's hypoxia improved. She was titrated to room air and able to provide a sputum sample for culture, which grew mixed matilde. She was hypertensive on admission and had stopped her antihypertensives because of lack of health insurance and medical care. She was restarted on lisinopril and HCTZ with improved blood pressure readings and provided prescriptions for these medications at the time of discharge. Her repeat chest x-ray the day of discharge showed improved aeration of the left base. Her final sputum culture grew out a resistent pseudomonas. The patient was contacted the day after discharge and her antibiotics were changed to ciprofloxacin 500mg po bid, 14 tabs. The patient was instructed to follow up with primary care and pulmonology and to obtain health insurance as soon as possible. Allergies: Coded Allergies: No Known Allergies (01/20/18) Significant Procedures: Chest x-ray 01/24/18 IMPRESSION: Improved aeration of the left lower lobe compared to recent exams. 01/20/18 EXAMINATION: CT ANGIOGRAM OF THE CHEST WITH CONTRAST (CT PULMONARY ANGIOGRAM FOR PE) CLINICAL INFORMATION: Shortness of breath and hemoptysis. COMPARISON: Chest CT from 05/26/2010 TECHNIQUE: Prior to contrast administration, noncontrast localization images were obtained. Subsequently, multidetector volumetric imaging was performed from the thoracic inlet to below the diaphragms following the administration of 95 mL Optiray 320 intravenous contrast. No contrast reaction reported. Sagittal, coronal, and MIP oblique sagittal reformatted images were obtained on the CT workstation, uploaded to PACS, and reviewed. DLP: Total exam dose-length product 512 mGy-cm FINDINGS: QUALITY OF STUDY/CONTRAST BOLUS: Borderline in satisfactory PULMONARY ARTERIES: Pulmonary arteries are normal in size. No embolic filling defects are identified within the main, lobar or segmental vessels. THORACIC AORTA: Mild atherosclerotic calcification of the thoracic aorta without aneurysm or dissection. LUNGS AND PLEURA: Lungs are hypoinflated and right diaphragm chronically elevated. The elevated right diaphragm produces mild compressive atelectasis in the right lung base. Mild patchy groundglass opacity is present in the left lung apex. Also, patchy ground glass opacity is present in the lower third of the left upper lobe. Secretions occlude the left lower lobe bronchi and the left lower lobe is collapsed. No evidence of a peribronchial mass. CARDIOVASCULAR: The heart size is normal. No inward bowing of the interventricular septum. No pericardial effusion. MEDIASTINUM: The esophagus has normal wall thickness. The visualized portion of the thyroid gland is unremarkable. No mediastinal mass. LYMPHATICS: No pathologic sized axillary, hilar or mediastinal lymph nodes. UPPER ABDOMEN: No acute findings. No reflux of contrast into the IVC. Multiple calyceal stones of the partially visualized right kidney, largest measuring 0.4 cm. Small, 0.3 cm calyceal stone is present within the upper pole of the left kidney. Gallbladder appears to be surgically absent. Common bile duct is 0.7 cm diameter. OSSEOUS STRUCTURES: Levoscoliosis of the degenerated lower thoracic and lumbar spine. No aggressive osseous lesions. IMPRESSION: 1. No evidence of pulmonary embolism. 2. Patchy groundglass opacity in the left upper lobe, consistent with pneumonia. 3. Secretions occlude the bronchi of the left lower lobe, and the left lower lobe is completely collapsed. 4. Nonobstructing renal stones. Disposition Summary Disposition Principal Diagnosis: Left upper lobar community acquired pneumonia and left lower lobar collapse Additional Diagnosis: Hypertension Discharge Disposition: home or self care Discharge Instructions General Discharge Information Code Status: Full Code Patient's Diet: Heart healthy diet Patient's Activity: As tolerated Follow-Up Instructions/Appts: Please follow up with your primary care physician and head mechanic, Dr. Pena. Please obtain health insurance as soon as possible. Medications at Discharge Discharge Medications: Stop taking the following medications: LISINOPRIL/HYDROCHLOROTHIAZIDE (Lisinopril-Hctz 20-25 MG Tab) 1 TAB TAB ORAL DAILY Qty = 30 Start taking the following new medications: Amoxicillin/Potassium Clav (Augmentin 875-125 Tablet) 875 MG-125 MG TABLET 1 Tablet ORAL TWICE DAILY Qty = 8 No Refills Instructions: . Comments: NOT GIVEN Lisinopril (Lisinopril) 10 MG TABLET 10 Milligram ORAL DAILY Qty = 30 Refills = 3 Comments: Last Taken:01/24/18 Time:0903 Hydrochlorothiazide (Hydrochlorothiazide) 12.5 MG CAPSULE 12.5 Milligram ORAL DAILY Qty = 30 Refills = 3 Instructions: . Comments: Last Taken: 01/24/18 Time:0903 Ciprofloxacin HCl (Cipro) 500 MG TABLET 1 Tablet ORAL TWICE DAILY Qty = 14 No Refills Copies To: Rajat De Jesus MD, MD, Roman Attending MD Review Statement Documenting Attending: Thiago Molina MD 1 Tablet ORAL TWICE DAILY Qty = 14 No Refills Copies To: Rajat De Jesus MD, MD, Roman Attending MD Review Statement Documenting Attending: Thiago Molina MD
[2018-01-25] MEDS ORDERED: CIPRO500 M1 PO (18:25)
== END 2018-01-24 14:15 | DRG 194 ==
LOC: ERH 19:08 → ERHI 22:19 → 2NB 22:19 → ERH 22:22 → ENRESERV 22:31 → 2NB 23:28 → ENPENDDIS 01-24 12:00 → ENTRNSPT 01-24 14:04 → EDTRNSPT 01-24 14:10 → EDTRNSPTSTS 01-24 14:10 → 2NB 01-24 14:15 → CMPTRNSPT 01-24 14:29
PROVIDERS: Internal Medicine; Physician Assistant; Preventive Medicine Public Health & General Preventive Medicine
DX: J18.9 Pneumonia, unspecified organism (principal); R04.2 Hemoptysis; J98.19 Other pulmonary collapse; Z91.14 Patient's other noncompliance with medication regimen; I10 Essential (primary) hypertension; E78.5 Hyperlipidemia, unspecified; R09.02 Hypoxemia; R91.8 Other nonspecific abnormal finding of lung field; Z90.49 Acquired absence of other specified parts of digestive tract
CPT/HCPCS: 2NBP; 36415; 36592; 71046; 82436; 87040; 87070; 87449; 87450; 93005; 93010; 96374; 96375; J0456; J0696; J1650; J2930; J7040; J7608